=== PATIENT | female | born 1955 | race Two or more races ===

== ENCOUNTER 2020-10-16 17:50 | Emergency (ER) | payer OTHER ==
[~2020-10-16] VITALS: Ht 162.6 cm; Wt 99.8 kg
[2020-10-16 22:12] VITALS: BP 140/86
[2020-10-16] MEDS ORDERED: methylPREDNISolone SOD SUCC 40 MG/ML VL IM ONE (22:15)
== END 2020-10-16 22:21 | disposition home or self-care (01) ==
LOC: ER 18:00
DX: M25.561 Pain in right knee (principal); G89.29 Other chronic pain; M06.9 Rheumatoid arthritis, unspecified; I10 Essential (primary) hypertension; I25.2 Old myocardial infarction
CPT/HCPCS: 73562; 93971; 96372; 99284; J2920

== ENCOUNTER 2021-01-29 12:43 | Inpatient (IN) | payer OTHER ==
[~2021-01-29] VITALS: Ht 160 cm; Wt 111.1 kg
[2021-01-29 13:29] LABS: Basophils # (auto) 0 10 ^3/uL (0-0.2); Basophils % (auto) 0.5 % (0.0-2.0); Eosinophils # (auto) 0.1 10 ^3/uL (0-0.8); Eosinophils % (auto) 0.8 % (0.0-7.0); Hematocrit 42.7 % (36.0-46.0); Hemoglobin 14.3 g/dL (12.2-16.2); Lymphocytes # (auto) 1.7 10 ^3/uL (0.4-5.4); Lymphocytes % (auto) 19.7 % (10.0-50.0); Mean Corpuscular Hemoglobin 32.9 pg (28.0-32.0); Mean Corpuscular Hgb Conc. 33.4 g/dL (32.0-36.0); Mean Corpuscular Volume 98.5 fL (80.0-100.0); Monocytes # (auto) 0.9 10 ^3/uL (0-1.3); Neutrophils # (auto) 5.8 10 ^3/uL (1.6-8.6); Nucleated Red Blood Cells % 0.1 %; Red Blood Cells 4.33 10^6/uL (4.0-5.20); Red Cell Distribution Width 14.2 % (11.8-14.3); White Blood Cell 8.5 10^3/uL (4.4-10.8)
[2021-01-29 13:36] LABS: Albumin 3.3 g/dL (3.4-5.0); Anion Gap 3 (5-15); Blood Urea Nitrogen 11 mg/dL (7-18); Carbon Dioxide 28 mmol/L (21-32); Chloride 108 mmol/L (98-107); Glucose 104 mg/dL (74-106); Magnesium 2.4 mg/dL (1.6-2.6); Potassium 3.9 mmol/L (3.5-5.1); Sodium 139 mmol/L (136-145)
[2021-01-29 13:43] LABS: Alanine Aminotransferase 26 U/L (13-56); Alkaline Phosphatase 95 U/L (45-117); Aspartate Aminotransferase 28 U/L (15-37); BUN/Creatinine Ratio 13.1; Bilirubin, Total 0.3 mg/dL (0.2-1.0); GFR African American 88 mL/min; GFR Non-African American 73 mL/min; Total Protein 8.2 g/dL (6.4-8.2)
[2021-01-29] MEDS ORDERED: ATORVASTATIN 20 MG TAB PO ONE (13:45)
[2021-01-29] MEDS ORDERED: ASPirin 325 MG TAB PO ONE (13:45)
[2021-01-29 13:58] LABS: INR 1.05 (0.9-1.15); Partial Thromboplastin Time 30.6 sec (23.6-33.0)
[2021-01-29] MEDS ORDERED: TEMAZEPAM 15 MG CAP PO PRN (17:45)
[2021-01-29] MEDS ORDERED: MORPHINE SULFATE INJECTION 2 MG/ML SYRG IV PRN (17:45)
[2021-01-29] MEDS ORDERED: ACETAMINOPHEN 500 MG TAB PO PRN (17:45)
[2021-01-29] MEDS ORDERED: LACTULOSE 20Gm/30ML SOLN PO PRN (17:45)
[2021-01-29] MEDS ORDERED: traMADol HCL 50 MG TAB PO PRN (17:45)
[2021-01-29] MEDS ORDERED: NITROGLYCERIN 0.4 MG SL TAB SL PRN (17:45)
[2021-01-29] MEDS ORDERED: LABETALOL HCL 5 MG/ML ML 20ML VIAL IV PRN (17:45)
[2021-01-29] MEDS: SODIUM CHLORIDE 0.9% 1,000 ML IV SCH (18:26)
[2021-01-29] MEDS: PROMETHAZINE HCL 25 MG/ML 1ML IV PRN (19:04)
[2021-01-29 20:15] LABS: Alcohol, Urine < 3.0 mg/dL (0-10); Amphetamine Screen, Urine NEGATIVE (NEGATIVE); Barbiturate Scree,Urine NEGATIVE (NEGATIVE); Benzodiazephine Screen, Urine NEGATIVE (NEGATIVE); Cannabinoid Screen, Urine NEGATIVE (NEGATIVE); Cocaine Screen, Urine NEGATIVE (NEGATIVE); Opiate Scree,Urine NEGATIVE (NEGATIVE); Phencyclidine Screen, Urine NEGATIVE (NEGATIVE)
[2021-01-29 20:20] LABS: Urine Bacteria FEW /hpf (None Seen); Urine WBC 2 /hpf (0 - 5)
[2021-01-29 20:32] LABS: Urine Blood TRACE /uL (Negative)
[2021-01-30] MEDS: PROMETHAZINE HCL 25 MG/ML 1ML IV PRN ×2 (04:29→09:48)
[2021-01-30] MEDS ORDERED: MORPHINE SULFATE INJECTION 2 MG/ML SYRG IV PRN (05:15)
[2021-01-30] MEDS: SODIUM CHLORIDE 0.9% 1,000 ML IV SCH ×2 (06:15→23:14)
[2021-01-30] MEDS: ASPirin 81 mg TAB PO SCH (09:48)
[2021-01-30] MEDS: ENOXAPARIN SOD 40 MG/0.4 ML SYRINGE SC SCH (09:48)
[2021-01-30] MEDS ORDERED: PRE5T PO (11:49)
[2021-01-30] MEDS ORDERED: METH2.5T PO (11:49)
[2021-01-30] MEDS ORDERED: ONDA-188 PO (11:49)
[2021-01-30] MEDS ORDERED: CARV12.544 PO (11:51)
[2021-01-30] MEDS ORDERED: LISI-716 PO (11:51)
[2021-01-30] MEDS ORDERED: ALEN70TA74 PO (11:52)
[2021-01-30] MEDS ORDERED: FOLI1TAB6 PO (11:52)
[2021-01-30] MEDS ORDERED: ETAN50IN10 SC (12:03)
[2021-01-30] MEDS ORDERED: ACETAMINOPHEN 500 MG TAB PO PRN (15:00)
[2021-01-30] MEDS: ACETAMINOPHEN 325 MG TAB PO PRN (16:51)
[2021-01-30 22:00] VITALS: BP 114/68
[2021-01-30] MEDS ORDERED: ATORVASTATIN 20 MG TAB PO SCH (22:00)
[2021-01-30 23:50] VITALS: BP 114/68
[2021-01-31 05:00] VITALS: BP 117/49
[2021-01-31 06:56] LABS: Cholesterol 88 mg/dL (< 200)
[2021-01-31 06:59] LABS: HDL Cholesterol 35 mg/dL (40-59); LDL Cholesterol 48 mg/dL (< 100); Triglycerides 69 mg/dL (< 150)
[2021-01-31] MEDS: SODIUM CHLORIDE 0.9% 1,000 ML IV SCH (07:15)
[2021-01-31 09:00] VITALS: BP 152/75
[2021-01-31] MEDS: ASPirin 81 mg TAB PO SCH (09:20)
[2021-01-31] MEDS: ACETAMINOPHEN 325 MG TAB PO PRN (09:22)
[2021-01-31] MEDS: ENOXAPARIN SOD 40 MG/0.4 ML SYRINGE SC SCH (09:23)
[2021-01-31] MEDS ORDERED: FAMOTIDINE 20 MG TAB PO SCH (10:00)
[2021-01-31] MEDS ORDERED: predniSONE 20 MG TAB PO SCH (10:00)
[2021-01-31 13:00] VITALS: BP 154/85
[2021-01-31 17:00] VITALS: BP 149/79
== END 2021-01-31 18:11 | disposition home or self-care (01) | DRG 74 ==
LOC: ER 12:43 → TELE 17:37 → TELE-EAST 01-30 22:50
PROVIDERS: ADMIT Internal Medicine; ATTEND Internal Medicine Geriatric Medicine
DX: G51.0 Bell's palsy (principal); Z68.41 Body mass index [BMI] 40.0-44.9, adult; G96.08 Other cranial cerebrospinal fluid leak; E66.01 Morbid (severe) obesity due to excess calories; I10 Essential (primary) hypertension; M06.9 Rheumatoid arthritis, unspecified; I25.10 Atherosclerotic heart disease of native coronary artery without angina pectoris; Z20.822 Contact with and (suspected) exposure to COVID-19; M19.90 Unspecified osteoarthritis, unspecified site; F41.9 Anxiety disorder, unspecified; I25.2 Old myocardial infarction; Z83.3 Family history of diabetes mellitus
CPT/HCPCS: 36415; 70450; 70551; 71046; 80053; 80061; 80307; 81001; 83735; 83880; 84484; 85025; 85610; 85652; 85730; 87426; 92610; 93005; 93306; 93886; 96361; 96374; G0378

== ENCOUNTER 2021-05-15 10:38 | Emergency (ER) | payer OTHER ==
[~2021-05-15] VITALS: Ht 160 cm; Wt 109.8 kg
[~2021-05-15 10:38] MED LIST: ALEN70TA74 PO; CARV12.544 PO; ETAN50IN10 SC; FOLI1TAB6 PO; LISI-716 PO; METH2.5T PO; ONDA-188 PO; PRE5T PO
[2021-05-15] MEDS ORDERED: cloNIDine HCL 0.1 MG TAB ONE (10:56)
[2021-05-15] MEDS ORDERED: cloNIDine HCL 0.1 MG TAB PO ONE (11:00)
[2021-05-15] MEDS ORDERED: ASPirin 81 mg TAB PO ONE (11:15)
[2021-05-15 12:14] LABS: Basophils # (auto) 0.1 10 ^3/uL (0-0.2); Basophils % (auto) 0.9 % (0.0-2.0); Eosinophils # (auto) 0.1 10 ^3/uL (0-0.8); Eosinophils % (auto) 1.3 % (0.0-7.0); Hematocrit 40.9 % (36.0-46.0); Hemoglobin 13.9 g/dL (12.2-16.2); Lymphocytes # (auto) 1.5 10 ^3/uL (0.4-5.4); Lymphocytes % (auto) 24.8 % (10.0-50.0); Mean Corpuscular Hemoglobin 33.4 pg (28.0-32.0); Mean Corpuscular Volume 98.1 fL (80.0-100.0); Monocytes # (auto) 0.8 10 ^3/uL (0-1.3); Monocytes % (auto) 13.7 % (0.0-12.0); Neutrophils # (auto) 3.5 10 ^3/uL (1.6-8.6); Neutrophils % (auto) 59.3 % (37.0-80.0); Nucleated Red Blood Cells % 0.2 %; Red Blood Cells 4.17 10^6/uL (4.0-5.20); Red Cell Distribution Width 13.9 % (11.8-14.3)
[2021-05-15 12:37] LABS: INR 1.06 (0.9-1.15); Partial Thromboplastin Time 30.7 sec (23.6-33.0)
[2021-05-15 12:46] LABS: Albumin 3.3 g/dL (3.4-5.0); BUN/Creatinine Ratio 15.7; Bilirubin, Total 0.3 mg/dL (0.2-1.0); Calcium 8.7 mg/dL (8.5-10.1); Magnesium 2.7 mg/dL (1.6-2.6); Total Protein 7.7 g/dL (6.4-8.2)
[2021-05-15 17:06] VITALS: BP 145/64
== END 2021-05-15 14:56 | disposition home or self-care (01) ==
LOC: ER 10:38
DX: R07.89 Other chest pain (principal); I10 Essential (primary) hypertension; I25.2 Old myocardial infarction; E78.5 Hyperlipidemia, unspecified; Z90.49 Acquired absence of other specified parts of digestive tract; Z79.899 Other long term (current) drug therapy
CPT/HCPCS: 36415; 71046; 80053; 83735; 84484; 85025; 85610; 85730; 93005